=== PATIENT | male | born 1995 | race Hispanic/Latino ===

== ENCOUNTER 2017-12-21 08:51 | Emergency (ER) | payer OTHER ==
[~2017-12-21] VITALS: Ht 167.6 cm; Wt 83.0 kg
== END 2017-12-21 10:48 | disposition home or self-care (01) ==
LOC: ER 08:51
DX: M79.641 Pain in right hand (principal); G56.01 Carpal tunnel syndrome, right upper limb
CPT/HCPCS: 99284